=== PATIENT | female | born 1990 | race Two or more races ===

== ENCOUNTER 2018-05-07 12:58 | Emergency (ER) | payer OTHER ==
[~2018-05-07] VITALS: Ht 157.5 cm; Wt 88.5 kg
[2018-05-07 13:22] VITALS: BP 158/90
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
[2018-05-07] MEDS ORDERED: Norco 5mg/325mg tab ORAL ONE (13:45)
--- NOTE | 2018-05-07 15:59 | Diagnostic Imaging Report ---
Indication: Chest pain. Anterior chest trauma and pain Technique: Continuous helical transaxial imaging of the chest was obtained from the thoracic inlet to the upper abdomen. No intravenous contrast was administered. Coronal 2-D reformats were also obtained. Total Dose length Product (DLP): 953.[address] Dose Index Volume (CTDIvol): 29.21 mGy Comparison: none Findings: There is a slight buckle deformity involving the right anterior seventh rib (image 43, series 4) consistent with a nondisplaced fracture. On the left side there is a suggestion of a small nondisplaced fracture anterior rib near costal cartilage junction involving the left fifth rib (image 31, series 4. There is a probable nondisplaced fracture of the anterior left sixth rib as well. The costal cartilage itself appears grossly unremarkable. There is a no chest wall hematoma or significant swelling, inflammation or edema identified. There is certainly no evidence of pneumothorax or lung contusion. There is no evidence of pleural effusion. No mediastinal fluid identified. The study was done without intravenous contrast material as such vascular structures are not evaluated well but doesn't appear grossly unremarkable. There is suggestion of mild basal atelectasis. The configuration and height of the vertebral bodies and other osseous structures visualized appear grossly unremarkable. The kidneys are only partially seen on this exam but have an unusual appearance and may be atrophic. The liver may be slightly low in attenuation suggestive of fatty infiltration. IMPRESSION: Acute nondisplaced fractures involving anterior left fifth and sixth ribs and anterior right seventh rib. No associated chest wall hematoma, pneumothorax or other more serious injury identified. Mild posterior basilar atelectasis. Incidental finding of questionable atrophy of the kidneys. The finding may be spurious as the kidneys are barely imaged on this study. Suggestion of mild fatty liver The CT scanner at [facility] is accredited by the [employer] and the scans are performed using dose optimization techniques as appropriate to a performed exam including Automatic Exposure control.
[2018-05-07] MEDS ORDERED: NORCO 5-325 TA1 EACH ORAL (16:00)
[2018-05-07] MEDS ORDERED: IBUPROFEN600 MG ORAL (16:00)
[2018-05-07 16:09] VITALS: BP 110/70
== END 2018-05-07 16:12 | disposition home or self-care (01) ==
LOC: EMR 13:35
DX: S22.43XA Multiple fractures of ribs, bilateral, initial encounter for closed fracture (principal); V69.88XA Occupant (driver) (passenger) of heavy transport vehicle injured in other specified transport accidents, initial encounter; R07.81 Pleurodynia; Y93.89 Activity, other specified; Y92.9 Unspecified place or not applicable; Y99.9 Unspecified external cause status
CPT/HCPCS: 71250; 81025; 99284